=== PATIENT | female | born 1985 | race Caucasian/White ===

== ENCOUNTER 2016-12-11 05:32 | Emergency (ER) | payer MEDICAID ==
--- NOTE | 2016-12-11 05:50 | Emergency Department Record ---
History of Present Illness - General Source: Patient Mode of Arrival: EMS Limitations: No limitations - History of Present Illness Initial Comments: 31 yo female presents to ED for evaluation following a heroine overdose. Patient was found this morning in the bathroom of the [facility] bathroom, had been in the bathroom for approximately 1 hours before police were called. Patient was found minimally responsive, but was able to ambulate to the cart for EMS. Patient reports using heroine this morning, was not given Narcan [employer]ER. Patient reports that she does not remember anything further. MD Complaint: Accidental overdose Onset/Timin -: Hour(s) - [place] Coma Scale Eye Response: (4) Open spontaneously Motor Response: (6) Obeys commands Verbal Response: (5) Oriented [place] Total: 15 Substance Ingested: Heroine - Detail Context: Accidental Overdose: Wanted to get high Associated Symptoms: Other (drowsiness) Treatments Prior to Arrival: None <MO COSBY - Last Filed: 12/11/16 06:55> <Saray Gandhi - Last Filed: 12/11/16 09:45> - General Chief Complaint: Overdose Stated Complaint: HEROINE OD Time Seen by Provider: 12/11/16 05:44 Review of Systems ROS unobtainable: Due to mental status <MO COSBY - Last Filed: 12/11/16 06:55> Physical Exam - General General Appearance: Alert, Oriented x3, Cooperative, Other (patient is drowsy on examination, nods off but arouses to voice) Limitations: Altered mental status - Head Head exam: Atraumatic, Normocephalic, Normal inspection Head exam detail: Other (raised circular lesion to the right forehead). negative: Abrasion, Contusion, Fair's sign, General tenderness, Hematoma, Laceration - Eye Eye exam: Other (pupils are 2-3 mm bilaterally). negative: Conjunctival injection, Periorbital swelling, Periorbital tenderness, Scleral icterus - ENT Ear exam: negative: Auricular hematoma, Auricular trauma Nasal Exam: negative: Active bleeding, Discharge, Dried blood, Foreign body Mouth exam: negative: Drooling, Laceration, Muffled voice, Tongue elevation - Neck Neck exam: Normal inspection. negative: Meningismus, Tenderness - Respiratory Respiratory exam: Normal lung sounds bilaterally. negative: Rales, Respiratory distress, Rhonchi, Stridor - Cardiovascular Cardiovascular Exam: Regular rate, Normal rhythm, Normal heart sounds Peripheral Pulses: 3+: Radial (R), Radial (L) - GI/Abdominal GI/Abdominal exam: Soft. negative: Rebound, Rigid, Tenderness - Rectal Rectal exam: Deferred - exam: Deferred - Extremities Extremities exam: Other (track davis left anti-cubital region). negative: Calf tenderness, Pedal edema, Tenderness - Back Back exam: Denies: CVA tenderness (R), CVA tenderness (L) - Neurological Neurological exam: Altered, Other (arouses to voice on examination) - Psychiatric Psychiatric exam: Normal affect, Normal mood - Skin Skin exam: Normal color. negative: Abrasion Type of lesion: negative: abrasion <MO COSBY - Last Filed: 12/11/16 06:55> Course Vital Signs 12/11/16 05:35 Temperature 97.5 F L Pulse Rate [ 103 H Pulse Ox Probe] Respiratory 18 Rate Blood Pressure 127/83 [Left Arm] Pulse Ox 100 - Reevaluation(s) Reevaluation #1: 12/11/16 05:50 Findings are consistent with opiate overdose, will plan on monitoring for 3-4 hours with frequent reassessments. Reevaluation #2: 12/11/16 06:53 Labs reviewed, Glucose 299, labs are otherwise grossly unremarkable for an acute process. Will continue to monitor. Pulse ox reviewed and not felt to be accurate due to cold hands. Pulse ox has been persistently above 95% after the patient's hands warmed up. Case was discussed with oncoming provider, will assume care and disposition at this time. 12/11/16 06:55 <MO COSBY - Last Filed: 12/11/16 06:55> Vital Signs 12/11/16 12/11/16 12/11/16 05:35 05:42 06:56 Temperature 97.5 F L Pulse Rate 103 H Pulse Rate [ 103 H 81 Pulse Ox Probe] Respiratory 18 10 L Rate Blood Pressure 127/83 Blood Pressure 127/83 108/59 [Left Arm] Blood Pressure [Right Arm] Pulse Ox 100 96 96 12/11/16 07:31 Temperature Pulse Rate Pulse Rate [ 73 Pulse Ox Probe] Respiratory 10 L Rate Blood Pressure Blood Pressure [Left Arm] Blood Pressure 98/73 [Right Arm] Pulse Ox 99 - Reevaluation(s) Reevaluation #1: 12/11/16 09:38 pt started asking to leave at 8. pt told she could leave in 1-2 hrs if she found a person to assume care. pt was fed breakfast. pt used bathroom twice but refused to give us a urine. pt was advised of high blood sugar and need for close follow up for possible new onset diabetes. pt told we needed to check urine for ketones and glucose but she refused. pt offered help w addiction, she refused. <Saray Gandhi - Last Filed: 12/11/16 09:45> Medical Decision Making - Lab Data Result diagrams: 12/11/16 05:45 12/11/16 05:45 <MO COSBY - Last Filed: 12/11/16 06:55> - Lab Data Result diagrams: 12/11/16 05:45 12/11/16 05:45 Lab Results 12/11/16 12/11/16 Range/Units 05:45 05:45 WBC 4.9 (4.2-12.2) K/uL RBC 4.17 (3.80-5.40) M/uL Hgb 13.5 (11.6-16.0) gm/dl Hct 40.1 (35.0-47.0) % MCV 96.2 (81-97) fl MCH 32.4 (27-33) pg MCHC 33.7 (32-36) g/dl RDW 12.8 (11.5-14.5) % Plt Count 246 (130-400) K/uL MPV 9.8 (7.4-10.4) fl Gran % 60.6 (47-80) % Lymphocytes % 33.5 (16-45) % Monocytes % 3.7 (0-9) % Eosinophils % 1.8 (0-6) % Basophils % 0.4 (0-6) % Sodium 137 (136-145) mmol/L Potassium 4.0 (3.5-5.1) mmol/L Chloride 99 (98-107) mmol/L Carbon Dioxide 28.0 (22-30) mmol/L Anion Gap 10.0 (7-16) BUN 6 L (7-17) mg/dL Creatinine 0.8 (0.52-1.04) mg/dL Estimated GFR > 60 ml/min Random Glucose 299 H (70-110) mg/dL Calcium 8.5 (8.5-10.1) mg/dL Total Bilirubin 0.55 (0.2-1.3) mg/dL AST 37 H (14-36) U/L ALT 41 (9-52) U/L Alkaline Phosphatase 73 (38-126) U/L Total Protein 7.7 (6.3-8.2) gm/dL Albumin 4.6 (3.5-5.0) gm/dL Globulin 3.1 (1.4-4.8) gm/dL Albumin/Globulin Ratio 1.5 (1.1-1.8) <Saray Gandhi - Last Filed: 12/11/16 09:45> Disposition <MO COSBY - Last Filed: 12/11/16 06:55> Disposition: Discharge <Saray Gandhi - Last Filed: 12/11/16 09:45> Clinical Impression: Hyperglycemia Opiate overdose Qualifiers: Encounter type: initial encounter Injury intent: accidental or unintentional Qualified Code(s): T40.601A - Poisoning by unspecified narcotics, accidental ( unintentional), initial encounter Disposition: Home, Self-Care Condition: (1) Good Instructions: Narcotic Abuse (ED), Hyperglycemia, Non-Diabetic (ED), Diabetic Hyperglycemia (ED) Additional Instructions: follow up with dr ocasio or other family doctor maribell regarding high blood sugar and diabetes. stop heroin. return dooner if worse. Forms: Patient Portal Access
[2016-12-11 06:00] LABS: BASO % 0.4 % (0-6); EOS % 1.8 % (0-6); GRAN % 60.6 % (47-80); HEMATOCRIT 40.1 % (35.0-47.0); HEMOGLOBIN 13.5 gm/dl (11.6-16.0); LYMPH % 33.5 % (16-45); MEAN CELL VOLUME 96.2 fl (81-97); MEAN CORPUSCULAR HEMOGLOBIN 32.4 pg (27-33); MEAN CORPUSCULAR HGB CONC 33.7 g/dl (32-36); MEAN PLATELET VOLUME 9.8 fl (7.4-10.4); MONO % 3.7 % (0-9); PLATELET COUNT 246 K/uL (130-400); RED BLOOD COUNT 4.17 M/uL (3.80-5.40); RED CELL DISTRIBUTION WIDTH 12.8 % (11.5-14.5); WHITE BLOOD COUNT W/O DIFF 4.9 K/uL (4.2-12.2)
[2016-12-11 06:12] LABS: ALB/GLOB RATIO 1.5 (1.1-1.8); ALBUMIN 4.6 gm/dL (3.5-5.0); ALKALINE PHOSPHATASE 73 U/L (38-126); ALT/SGPT 41 U/L (9-52); AST/SGOT 37 U/L (14-36); BILIRUBIN,TOTAL 0.55 mg/dL (0.2-1.3); BLOOD UREA NITROGEN 6 mg/dL (7-17); CREATININE 0.8 mg/dL (0.52-1.04); EST GLOMERULAR FILTRATION RATE > 60 ml/min; GLUCOSE,RANDOM 299 mg/dL (70-110); TOTAL PROTEIN 7.7 gm/dL (6.3-8.2)
[2016-12-11] MEDS ORDERED: IBUPROFEN 600 MG TABLET PO ONE (07:58)
== END 2016-12-11 09:59 | disposition home or self-care (01) ==
LOC: ER 05:32
DX: T40.1X1A Poisoning by heroin, accidental (unintentional), initial encounter (principal); R73.9 Hyperglycemia, unspecified; R40.0 Somnolence; Y92.524 Gas station as the place of occurrence of the external cause
CPT/HCPCS: 80053; 85025; 99284